=== PATIENT | female | born 1990 | race Caucasian/White ===

== ENCOUNTER 2016-09-02 17:08 | Emergency (ER) | payer OTHER ==
[~2016-09-02] VITALS: Ht 149.9 cm; Wt 63.5 kg
[~2016-09-02 17:08] MED LIST: ANTIVERT 25MG #1 PAC PO; ANTIVERT25 MG PO; MEDROL4 M2 PO; ZITHROMAX Z-PA250 M1 PO
[2016-09-02 17:26] VITALS: BP 129/76
--- NOTE | 2016-09-02 19:26 | ED UPPER/LOWER EXTREMITY COMPL ---
History of Present Illness General Chief Complaint: Lower Extremity Injury Stated Complaint: RIGHT BIG TOE NAIL COMING OFF Source: family Exam Limitations: no limitations Vital Signs & Intake/Output Vital Signs & Intake/Output Vital Signs Date Time Temp Pulse Resp B/P B/P Pulse O2 O2 Flow FiO2 Mean Ox Delivery Rate 09/02 1946 Room Air 09/02 1726 98.2 72 18 129/76 98 Room Air Allergies Coded Allergies: Penicillins (Severe, ANAPHYLAXIS 09/02/16) Reconcile Medications Diclofenac Sodium 75 MG TABLET.DR 1 TAB PO BID PRN pain Doxycycline Hyclate 100 MG TABLET 1 TAB PO BID cellulitis Metronidazole 0.75 % GEL.W.APPL 1 A VG QPM THEOLOGY PROFESSOR (Reported) Norethindrone-E.estradiol-Iron (Junel Fe 1 MG-20 Mcg Tablet) 1 MG-20 MCG (21)/75 MG (7) TABLET 1 TAB PO DAILY CONTROL (Reported) Pnv95/Ferrous Fumarate/FA ( Formula Tablet) (Unknown Strength) TABLET (Unknown Dose) PO DAILY SUPPLEMENT (Reported) Triage Note: 26 YO FEMALE TO ER C/O R BIG TOENAIL COMING OFF. BANDAGE IN PLACE AT THIS TIME Triage Nurses Notes Reviewed? yes Onset: Abrupt Duration: day(s): Timing: recent history Severity: severe Pain/Injury Location: Right: 1st toe. Modifying Factors: Improves With: immobilization. Worsens With: movement. : No Patient currently breastfeeds: No HPI: 26-year-old female presents to emergency department complaining of right great toe nail injury. She states she has a history of toenail fungus on this nail from a years. She states that last night someone excellently kicked her toe causing the nail to separate somewhat from the toe. She has significant pain with any pressure to her great toe however when she rests there is no pain present. She has not seen a field pipelines supervisor for several years. She denies any numbness or tingling, fevers, chills, other musculoskeletal pain Past History Travel History Traveled to [place] past 21 day No Medical History Any Pertinent Medical History? see below for history Neurological: NONE EENT: NONE Cardiovascular: NONE Respiratory: asthma Gastrointestinal: NONE Hepatic: NONE Renal: NONE Musculoskeletal: NONE Psychiatric: NONE Endocrine: NONE Blood Disorders: NONE Cancer(s): NONE THEOLOGY PROFESSOR/Reproductive: NONE Surgical History Surgical History: non-contributory, N Psychosocial History What is your primary language Divehi Tobacco Use: Never used Family History Hx Contributory? No Review of Systems Review of Systems Constitutional: Reports: no symptoms. EENTM: Reports: no symptoms. Respiratory: Reports: no symptoms. Cardiovascular: Reports: no symptoms. Gastrointestinal/Abdominal: Reports: no symptoms. Genitourinary: Reports: no symptoms. Musculoskeletal: Reports: see HPI. Skin: Reports: see HPI. Neurological/Psychological: Reports: no symptoms. Hematologic/Endocrine: Reports: no symptoms. Immunological: Reports: no symptoms. All Other Systems: Reviewed and Negative Physical Exam Physical Exam General Appearance: well developed/nourished, no apparent distress, alert, awake Head: atraumatic, normal appearance Eyes: Bilateral: normal appearance. Ears, Nose, Throat: hearing grossly normal Neck: normal inspection, supple, full range of motion Cardiovascular/Respiratory: no respiratory distress Peripheral Pulses: 2+ dorsalis pedis (R), 2+ dorsalis pedis (L) Back: normal inspection, normal range of motion Foot Left: normal inspection, normal range of motion Foot Right: normal range of motion, Partial avulsion of medial aspect of right great toe, toenail with thickening, tenderness to palpation with any movement of toenail Neurologic/Tendon: normal sensation, normal motor functions, normal tendon functions Skin: intact, normal color, warm/dry Progress Differential Diagnosis: cellulitis, fracture, gout, tendon injury, toe nail avulsion Plan of Care: Orders Procedure Date/time Status Durable Medical Equipment 09/02 2012 Active The patient is sitting comfortably in stretcher. She is able to ambulate. She saw a field pipelines supervisor many years ago however does not currently have a field pipelines supervisor. She was educated on risk of permanent toenail loss with extraction of toenail today. The patient elects to follow up with field pipelines supervisor this week rather than have toenail extracted today in the ER. Patient was seen and evaluated by DIXON Lambert. The toe was dressed with bacitracin and a total wrap. The patient was given a soft walking shoe to reduce her pain. The patient was given prophylactic antibiotics to prevent toe infection and was given diclofenac for her pain. The patient was discussed with Dr. Laboy. He was given a referral for field pipelines supervisor and will follow-up this week. The patient is in agreement with the plan of care. (ABRAHAM LUDWIG,THEE) Departure Departure Disposition: HOME OR SELF CARE Condition: Stable Clinical Impression Primary Impression: Nail avulsion, toe Secondary Impressions: Onychomycosis Referrals: CANDI BRAGA (PCP/Family) FELIX DAVISON,RUTHANN DE LA O D.P.M.,ANGIE Tang Additional Instructions: Follow-up with field pipelines supervisor, call to make an appointment this week. Take full course of antibiotics to prevent infection. Wear protective shoe until you can follow up with field pipelines supervisor. Return with any worsening symptoms or concerns. Departure Forms: Customer Survey General Discharge Information Prescriptions: Current Visit Scripts Doxycycline Hyclate 1 TAB PO BID #14 TAB Diclofenac Sodium 1 TAB PO BID PRN pain #14 TAB
[2016-09-02] MEDS ORDERED: DOXYCYCLINE HY100 M4 PO (19:59)
[2016-09-02] MEDS ORDERED: JUNEL FE 1 MG-1 EACH PO (20:07)
[2016-09-02] MEDS ORDERED: METRONIDAZOLE70 GM VG (20:08)
[2016-09-02] MEDS ORDERED: PRENATAL FORMU1 EAC2 PO (20:09)
[2016-09-02] MEDS ORDERED: DICLOFENAC SODI75 M2 PO (20:26)
== END 2016-09-02 20:23 ==
LOC: ERH 17:08
DX: S91.111A Laceration without foreign body of right great toe without damage to nail, initial encounter (principal); B35.1 Tinea unguium; W51.XXXA Accidental striking against or bumped into by another person, initial encounter; Y92.9 Unspecified place or not applicable; Y93.9 Activity, unspecified